=== PATIENT | male | born 1960 | race Caucasian/White ===

== ENCOUNTER 2016-11-23 11:08 | Inpatient (IN) | payer OTHER ==
[~2016-11-23] VITALS: Ht 170.2 cm; Wt 63.5 kg
--- NOTE | ~2016-11-23 | PN ---
Unit #: [id number] #: [id number] Patient: VERNA HARRY [id number] [facility] [address] [place] [address] [id number] MR#: [id number] NAME: VERNA HARRY ROOM: [facility] Age: 56 Sex: M Admission Date: 11/24/2016 : 1960 Attending Physician: Nathen Augustine M.D. Admitting Physician: Nathen Augustine M.D. Primary Care Physician: Generic Doctor Not In System [facility] PROGRESS NOTES DATE 11/28/2016 DISCUSSION Mr. Harry continues to have detox symptoms, although they are improved today. His mood is better with a brighter range of affect and he appears a little more oriented today. He has had no seizure activity since admission. He has no depression and no SI today. ASSESSMENT Alcohol dependence. PLAN Continue current treatment plan. Dictated by... Tiffanie Rossi/pegh TD: 12/01/2016 22:26 JOB #: [id number] [facility] PROGRESS NOTES Page 1 of 1 X Nathen Augustine MD PROGRESS NOTE
--- NOTE | ~2016-11-23 | HP ---
Unit #: [id number] #: [id number] Patient: VERNA BOBO [id number] [place] [address] [id number] MR#: [id number] NAME: VERNA BOBO ROOM: [facility] Age: 56 Sex: M Admission Date: 11/24/2016 : 1960 Attending Physician: Nathen Augustine M.D. Admitting Physician: Nathen Augustine M.D. Primary Care Physician: Generic Doctor Not In System HISTORY AND PHYSICAL HISTORY OF PRESENT ILLNESS Verna is a 56 year old admitted to [facility] because of his abuse of alcohol. PAST MEDICAL HISTORY 1. Long history of alcohol abuse. 2. History of withdrawal seizures. 3. High blood pressure. 4. COPD. PAST SURGICAL HISTORY Appendectomy. ALLERGIES No known drug allergies. SOCIAL HISTORY Smokes 1 pack per day. Drinks greater than 1/2 gallon of liquor on a daily basis. Denies illicit drug use. FAMILY HISTORY Medically noncontributory. REVIEW OF SYSTEMS CONSTITUTIONAL: No fever or chills. HEENT: Denies any sore throat, ear pain or runny nose. CARDIOVASCULAR: Denies chest pain, irregular heart rhythm or palpitations. CHEST: Denies shortness of breath or cough. No hemoptysis. GASTROINTESTINAL: Denies nausea, vomiting, diarrhea or chronic constipation. ENDOCRINE: Denies history of increased thirst or urination. No recent significant weight loss or gain. GENITOURINARY: Denies dysuria, frequency, or hematuria. SKIN: Denies any rashes. HEMATOLOGIC: Denies history of increased bleeding or bruising. MUSCULOSKELETAL: Denies any hot, swollen joints. No generalized muscle pain. NEUROLOGIC: Denies problems with vision or speech. No frequent, severe headaches. No numbness, tingling or weakness in any extremities. Denies loss of bladder or bowel control. CURRENT MEDICATIONS Detox protocol. Unit #: [id number] #: [id number] Patient: VERNA BOBO PHYSICAL EXAMINATION GENERAL: Alert, well-nourished, in no apparent distress. VITAL SIGNS: Blood pressure 178/113, heart rate 76, respirations 16, temperature 98.6. WEIGHT: 140. HEIGHT: 5 feet 7 inches. SKIN: Warm and dry without rash or lesion. HEENT: Normocephalic. TMs not viewed. Oral and nasal passages clear. Conjunctivae clear. PERRLA. EOMs intact. NECK: Supple without lymphadenopathy or thyromegaly. HEART: Regular rate and rhythm without murmur. LUNGS: Clear. ABDOMEN: Soft, nontender. : Not done. EXTREMITIES: No evidence of cyanosis, clubbing or edema. Moves all without focal deficit. NEUROLOGICAL: Grossly within normal limits. Cranial Nerves: II: Visual rosario are intact. III, IV AND : Extraocular movements are intact. Pupils are equal, round and reactive to light. V: Facial sensation is grossly normal. VII: Facial movements and expression are normal. VIII: Auditory acuity grossly intact. IX, X: Uvula is midline. Phonation is normal. XI: Patient shrugs shoulders and turns head normally. XII: Tongue protrudes in the midline. Sensory and Motor Function: Sensory and motor sensation is grossly normal. Motor: moves all extremities well. Coordination: Gait is normal. Deep Tendon Reflexes: Intact. IMPRESSION Psychiatric admission. RECOMMENDATIONS PSYCHIATRIC: Per psychiatrist. MEDICAL: See no contraindication to participate in facility's activities. MEDICAL PROGNOSIS Good. MEDICAL CONDITION Stable. Dictated by... Ree Garcia P.A.-C. for Tiffanie Rios/herve TD: 11/24/2016 19:38 JOB #: [id number] Unit #: [id number] #: [id number] Patient: VERNA BOBO HISTORY AND PHYSICAL Page 1 of 1 X Ree Garcia X HISTORY AND PHYSICAL
--- NOTE | ~2016-11-23 | PN ---
Unit #: [id number] #: [id number] Patient: VERNA HARRY [id number] [facility] [address] [place] [address] [id number] I MR#: [id number] NAME: VERNA HARRY ROOM: [facility] Age: 56 Sex: M Admission Date: 11/24/2016 : 1960 Attending Physician: Nathen Augustine M.D. Admitting Physician: Nathen Augustine M.D. Primary Care Physician: Generic Doctor Not In System [facility] PROGRESS NOTES DATE OF SERVICE 11/26/2016 DISCUSSION Mr. Harry is irritable and angry this morning and appears mildly confused. He requested discharge last night but this was not possible due to his domicile in [place]. This morning he reports ongoing difficulty sleeping and increased irritability but denies a desire to leave the hospital. He is having active alcohol detox symptoms. ASSESSMENT Alcohol dependence. PLAN We will initiate Remeron at bedtime for insomnia and mood and continue with the detox protocol. Dictated by... Tiffanie Rossi/aaron TD: 12/01/2016 01:10 JOB #: [id number] [facility] PROGRESS NOTES Page 1 of 1 X Nathen Augustine MD PROGRESS NOTE
--- NOTE | ~2016-11-23 | PN ---
Unit #: [id number] #: [id number] Patient: VERNA HARRY [id number] [facility] [address] [place] [address] [id number] MR#: [id number] NAME: VERNA HARRY ROOM: [facility] Age: 56 Sex: M Admission Date: 11/24/2016 : 1960 Attending Physician: Nathen Augustine M.D. Admitting Physician: Nathen Augustine M.D. Primary Care Physician: Generic Doctor Not In System [facility] PROGRESS NOTES DATE 11/29/2016 DISCUSSION Mr. Harry continues to have izac-yy-rxzrfhkf detox symptoms today although his mood is improved. He has little of the residual confusion or disorientation that he showed previously. He is alert and fully oriented with no active psychosis and has no active suicidal ideation. He is planning to attend the [facility] in [place], [place] after discharge. ASSESSMENT Alcohol dependence. PLAN Anticipate discharge tomorrow with followup through the [facility]. Dictated by... Tiffanie Rossi/aaron TD: 12/06/2016 03:33 JOB #: [id number] [facility] PROGRESS NOTES Page 1 of 1 X Nathen Augustine MD PROGRESS NOTE
--- NOTE | ~2016-11-23 | DS ---
Unit #: [id number] #: [id number] Patient: JOSHUA BOBO [id number] [facility] [address] [place] [address] [id number] MR#: [id number] NAME: JOSHUA BOBO ROOM: [facility] Age: 56 Sex: M Admission Date: 11/24/2016 : 1960 Discharge Date: 11/30/2016 Attending Physician: Nathen Augustine M.D. Primary Care Physician: Generic Doctor Not In System DISCHARGE SUMMARY REASON FOR ADMISSION Joshua is a 56-year-old man who came to the hospital in [place], [place], reporting increasing alcohol use and difficulty tolerating alcohol detox. He reported he was "killing himself" but denied suicidal ideation. He admitted to hallucinations and recent weight loss as part of his recovery difficulty. He was admitted for detox. DIAGNOSTIC STUDIES LABORATORY DATA: Please see hospital chart. HOSPITAL COURSE Joshua was admitted and placed on the alcohol detox protocol. He had some episodes of irritability with some confusion, and appeared disoriented on days 2 and 3 of his hospitalization. This gradually resolved, and he became polite and cooperative throughout the remainder of hospitalization as his detox resolved. On the date of discharge, he was once again able to contract for safety in the outpatient setting with no suicidal ideation, hopelessness, or other emotional issues. DISCHARGE DIAGNOSES AXIS I: Alcohol dependence withdrawal, uncomplicated F10.230. AXIS II: No diagnosis. AXIS III: History of resolved seizures. Hypertension. Chronic obstructive pulmonary disease. DISCHARGE INSTRUCTIONS Follow up with the [facility] in [place], [place], and primary care physician. DISCHARGE MEDICATIONS None. CONDITION ON DISCHARGE Fair. PROGNOSIS Fair. DIET AND ACTIVITY Per primary care doctor. Unit #: [id number] #: [id number] Patient: JOSHUA BOBO Dictated by... Nathen Augustine M.D. [facility]/bzg TD: 12/06/2016 12:56 JOB #: [id number] DISCHARGE SUMMARY Page 1 of 1 X Nathen Augustine MD X DISCHARGE SUMMARY
--- NOTE | ~2016-11-23 | PN ---
Unit #: [id number] #: [id number] Patient: VERNA HARRY [id number] [facility] [address] [place] [address] [id number] I MR#: [id number] NAME: VERNA HARRY ROOM: [facility] Age: 56 Sex: M Admission Date: 11/24/2016 : 1960 Attending Physician: Nathen Augustine M.D. Admitting Physician: Nathen Augustine M.D. Primary Care Physician: Generic Doctor Not In System [facility] PROGRESS NOTES DATE 11/27/2016 DISCUSSION Mr. Harry continues to have dyrj-sw-dqlvifov detox symptoms today. His tendency towards delirium appears improved although he still appears somewhat confused at times. He is alert and fully oriented but his memory and concentration remain questionable and his thought processes demonstrate some paranoia. ASSESSMENT Alcohol dependence with withdrawal and delirium. PLAN Continue current treatment plan including Remeron for insomnia. Dictated by... Tiffanie Rossi/mynor TD: 12/01/2016 06:06 JOB #: [id number] [facility] PROGRESS NOTES Page 1 of 1 X Nathen Augustine MD PROGRESS NOTE
--- NOTE | ~2016-11-23 | A ---
[facility] Nutrition Therapy DATE: 11/27/16 Patient: VERNA BOBO Physician: DENIA Address: [address] Room/Bed: [address], Zip: [place] [address] Admit Date: 11/24/16 Date of : [birth year] Height: 5 7 Weight: [phone] NUTRITIONAL ASSESSMENT: REASON: UNINTENTIONAL WEIGHT LOSS PATIENT ADMITTED FOR ETOH ABUSE PMH: WITHDRAWAL SEIZURES, HTN, COPD Anthropometrics: HT: 67", WT: 140#, BMI: 21.9 Labs: 11/25/16- AST: 86, ALT: 66, ALL OTHER NUTRITION LABS WNL Meds: SEROQUEL, DESYREL, MVI, VIT B COMPLEX, DETOX PROTOCOL Assessment: PATIENT IS A 56 Y/O MALE ADMITTED FOR ETOH DETOX. PATIENT IS CURRENTLY UNEMPLOYED, HOMELESS, SMOKES 1 PPD, AND DRINKS A GALLON OF ETOH DAILY. UPON ADMIT PATIENT STATED A POOR APPETITE WITH A 40# WEIGHT LOSS X LAST SEVERAL WEEKS. THERE IS NO OTHER WEIGHT HX RECORDED PER [employer]. NURSING REPORTS FAIR PO INTAKES. PATIENT IS ACTIVELY DETOXING AND ON ADMIT HE HAD C/O NAUSEA AND DIARRHEA. THERE ARE NO SKIN ISSUES NOTED ATT. NURSING NOTED THAT AT TIMES PATIENT HAS REFUSED HIS MEDICATIONS AND HAS BEEN IRRITABLE. PATIENT'S BMI IS WITHIN A HEALTHY RANGE AND HE IS 95% OF HIS IBW. HE IS ON A REGULAR DIET WITH NO CAFFEINE. Dx: UNINTENTIONAL WEIGHT LOSS R/T CURRENT CONDITIONS, ETOH ABUSE AEB SELF-REPORTED WEIGHT LOSS AND DECREASED APPETITE, NUTRITIONAL RISK POINT Intervention: REGULAR DIET, NO CAFFEINE, MEDS PER MD, DETOX, PSYCH Monitoring, Evaluation and Goals: 1. ADEQUATE PO AND INTAKES >50% OF MEALS 2. PREVENT, CORRECT MICRO/MACRO NUTRIENT DEFICIENCIES 3. WEIGHT; PREVENT FURTHER WEIGHT LOSS MONITOR: WEIGHTS, LABS, PO/FLUID INTAKES Recommendations: 1. CONTINUE REGULAR DIET WITH NO CAFFEINE TOLERATED. OFFER SNACKS BETWEEN MEALS. 2. ENCOURAGE ADEQUATE PO AND FLUID INTAKES. PATIENT HAS AN INCREASED RISK FOR DEHYDRATION D/T DIARRHEA 3. OBTAIN WEIGHTS ROUTINELY (EVERY 3-4 DAYS) 4. IF PO INTAKES ARE BELOW 50% OF MEALS PLEASE ORDER ENSURE BID TO PROMOTE ADEQUATE KCAL [facility] Nutrition Therapy DATE: 11/27/16 Patient: VERNA BOBO Physician: DENIA Address: [address] Room/Bed: P177-[address] [facility], Zip: [place] [address] Admit Date: 11/24/16 Date of : [birth year] Height: 5 7 Weight: [phone] TO F/U PER PROTOCOL AND PRN R/T PATIENT MILDLY COMPROMISED Respectfully, KRISTYN BAER RD, LD Food and Nutritional Services [facility] cc: client file
[2016-11-25 11:48] LABS: EOSINOPHIL# 0.1 X10e3 (0-0.7); EOSINOPHIL% 2.1 % (0.0-7.0); HEMATOCRIT 44.1 % (38.0-50.0); HEMOGLOBIN 15.2 gm/dL (13.0-16.0); LYMPHOCYTE# 1.7 X10e3 (1.0-3.5); LYMPHOCYTE% 36.4 % (17.0-45.0); MEAN CELL VOLUME 98.1 FL (83-96); MEAN CORPUSCULAR HEMOGLOBIN 33.9 PG (28-34); MEAN CORPUSCULAR HGB CONC 34.5 g/dL (30-36); MEAN PLATELET VOLUME 8.5 FL (6.5-11.5); MONOCYTE# 0.4 X10e3 (0-1.0); MONOCYTE% 7.5 % (3.0-12.0); NEUTROPHIL# 2.5 X10e3 (1.5-7.1); PLATELET COUNT 152 X10e3 (140-420); RED CELL DISTRIBUTION WIDTH 14.8 % (11.0-15.5); WHITE BLOOD COUNT 4.7 X10e3 (4.0-10.5)
[2016-11-25 12:02] LABS: DIFF IND NO
[2016-11-25 12:07] LABS: ALBUMIN SERUM 3.5 g/dL (3.5-5.0); BILIRUBIN,TOTAL 0.8 mg/dL (0.2-2.0); BUN/CREATININE RATIO 14.28; CREATININE SERUM 0.7 mg/dL (0.6-1.4); PROTEIN TOTAL SERUM 6.6 g/dL (6.0-8.3)
== END 2016-11-30 16:30 | DRG 897 ==
LOC: P1E 11-24 12:02
PROVIDERS: Psychiatry & Neurology Psychiatry
PROC: HZ2ZZZZ Detoxification Services for Substance Abuse Treatment (ICD-10-PCS; principal; 2016-11-24)
DX: F10.231 Alcohol dependence with withdrawal delirium (principal); I10 Essential (primary) hypertension; J44.9 Chronic obstructive pulmonary disease, unspecified
CPT/HCPCS: 80053; 85025; 86592